=== PATIENT | male | born 1995 | race African-American/Black ===

== ENCOUNTER → 2018-08-10 | Emergency (ER) | payer SELFPAY ==
[~2018-08-10] MED LIST: DEXTROSE 5%-WATER 1000 ML 1,000 ML with SODIUM BICARBONATE 150 MEQ IV PRN; DEXTROSE 5%-WATER 250 ML with EPINEPHRINE/PF 1 MG IV PRN; DEXTROSE 5%-WATER 250 ML with NOREPINEPHRINE BITARTRATE 4 MG IV PRN; EPINEPHRINE INJ 1 MG/10 ML DISP.SYRIN ONE; ETOMIDATE INJ/PF 20 MG/10 ML SDV IV ONE; FUROSEMIDE INJ/PF 40 MG/4 ML SDV IV ONE; FUROSEMIDE INJ/PF 40 MG/4 ML SDV ONE; MIDAZOLAM 2 MG/2 ML INJ IV ONE; MIDAZOLAM 2 MG/2 ML INJ ONE; MIDAZOLAM HCL 50 MG/100 ML RTUINJ IV PRN; NITROGLYCERIN/D5W 50 MG/250 ML RTUINJ IV ONE; NITROGLYCERIN/D5W 50 MG/250 ML RTUINJ IV PRN; NOREPINEPHRINE BITARTRATE INJ/PF 4 MG/4 ML SDV IV ONE; PIPERACILLIN/TAZOBACTAM 4.5 GM VIAL IV ONE; SODIUM BICARBONATE 8.4% INJ 50 MEQ/50 ML DISP.SYRIN ONE
--- NOTE | 2018-08-10 03:11 | ER Document Report ---
ED General - General Stated Complaint: RESPIRATORY FAILURE Time Seen by Provider: 08/10/18 03:01 Notes: Patient is a 22-year-old male who presents with complaint of being found unresponsive. All history is per the paramedics. Paramedics said they were called to the patient's house. There were called by family. They said when they arrived family could give them any history and said that they did not have any info to share with them about the patient. They said when they got to the patient he was unresponsive and had blood coming from his nose and mouth. His O2 saturation was 30%. They immediately started ventilating him. When they started to manually ventilate him he started to become agitated. They had to give him versed to try to calm down his agitation. They did try to give him some Narcan but did not have any response with this regards to increasing his respiratory drive. Eventually he was trying to fight them and his O2 saturations were not coming up and was very difficult to bag and they said he was very tense and therefore they paralyzed him with rocuronium and sedated him and attempted intubation. On the laryngoscope view the patient had very edematous airway and they could not pass the tube and therefore they placed a Hugh airway and then brought the patient here. Patient's SpO2 the entire time with the Hugh airway were between 45 and 55%. They said at the house the patient had a rolled up $20 bill that had white residue on it as well as patient had some white residue on his face. Past Medical History - Social History Smoking Status: Unknown if Ever Smoked Frequency of alcohol use: unknown Family History: Other - unknown Review of Systems - Review of Systems -: Yes ROS unobtainable due to patient's medical condition - patient is unre sponsive and paralyzed Physical Exam - Vital signs Vitals: Temp Resp Pulse Ox 97.2 F 20 65 L 08/10/18 03:29 08/10/18 03:29 08/10/18 03:29 - Notes Notes: General Appearance: Well nourished, unresponsive Vitals: reviewed, See vital signs table. Head: no swelling or tenderness to the head Eyes: PERRL Mouth: No decreasd moisture Throat: No tonsillar inflammation, No airway obstruction, No lymphadenopathy Neck: Supple Lungs: Bilateral rales to auscultation with manual ventilation through Hugh airway. [place] frothy sputum coming from Hugh airway Heart: Tachycardic rate, Regular rythm, No murmur, no rub Abdomen: Normal BS, soft, No rigidity, some distention Extremities: s good pulses in all extremities, no edema. Skin: warm, dry, appropriate color, no rash Neuro: unresponsive and medically paralyzed Course - Re-evaluation Re-evalutation: 08/10/18 03:07 Upon arrival to the ED patient is being manually ventilated through a Hugh airway. His O2 saturations were in the upper 40s to mid 50s with manual ventilation. Patient had been paralyzed with rocuronium by the paramedics. I requested togive etomidate to make sure that he is not paralyzed without appropriate sedation. I used the glide scope. Paramedics informed me that his airway was very edematous and that is what they cannot place a tube and therefore I chose to go with a 6-1/2 tube to help ensure better success in passing the tube through potentially edematous airway. I also placed the patient in position for cricothyrotomy in case I was unable to secure the airway through oral tracheal intubation. I cleaned the neck with chlorhexidine and injected with lidocaine with epi. Also had a LMA at bedside in case I could not get the airway secured via endotracheal intubation so that he would have some airway protection while I performed the surgical airway. Fortunately I was able to visualize the patient's cords with the glide scope. Patient did have significant swelling of the arytenoid cartilages. I was able to get around that swelling and able to pass the tube through the cords. Patient was then ventilated and then suctioned. Large amount of blood tinged frothy sputum was suctioned. Patient is on the ventilator. Initial saturations on the ventilator were in the 50s. They are now slowly increasing and are in the mid 60s. I have ordered Lasix to be given to help with his edema. I suspect that he has pulmon rocio edema which could have some hemorrhagic component in relation to cocaine or amphetamine overdose. X-ray currently confirms large amount of edema. I have ordered a CT scan of the head to make sure the patient does not have evidence of cerebral hemorrhage as well. 08/10/18 03:08 08/10/18 04:18 Patient's heart rate suddenly started to go up and his blood pressure started to increase as well. I gave 5 mg of Versed but his heart rate continues to climb. We will give another 10 mg of Versed and place him on a nitro drip being that his blood pressure not is in the 190s systolically. I have also ordered a repeat chest x-ray to make sure that the ET tube is still in appropriate positioning. 08/10/18 04:34 Patient's x-ray shows worsening bilateral interstitial treat of process. We have continued to suction him and continue to get blood-tinged frothy sputum out. Respiratory patient has tried different vent settings however his oxygenation remains approximately the same with the pain between 55 and 65%. Blood gas has come back with a very low PO2. It is difficult to tell how accur ate this is as the patient's blood on the blood gas was very dark in color. I suspect a mixed sample. I have called to speak with the steward/stewardess second at [facility]. I am waiting hear back at this time. Patient remains tachycardic despite large doses of Versed. I will order more Lasix. 08/10/18 06:02 Was waiting for the steward/stewardess second call back and the patient went into cardiac arrest. We immediately started compressions and gave 1mg IV epinephrine every 2 minutes. Also gave the patient 2 rounds of bicarbonate. We eventually got pulses back after several rounds of CPR and epinephrine. During compressions patient had large amounts of foamy frothy sputum coming from the G-tube and also vomited several times from the mouth. I asked the nurses to mix a epi drip. As they were mixing the epi drip the patient went pulseless. I immediately started compressions again. Went through several rounds of epinephrine bicarbonate and started epi drip. We regained pulses again. Since then we have the patient on epi drip as well as nor epi. [employer] did call back again why the patient had went into cardiac arrest again. Patient is back on the vent. I have taken him off the ventilator several times to try to manually ventilate him. I cannot get his O2 saturations above 65%. His O2 saturations continue to fluctuate between mid 50s to mid 60s. We continue to suction him as he has a very large amount of frothy secretions from the ET tube. I have tried to place arterial line twice. I tried once in the right femoral and once in the right radial artery. I was unsuccessful in both attempts. We will continue monitor blood cuff pressures and continue him on epi and nor epi drips. I called back [facility] again and informed them that the patient has pulses back and I am waiting to hear back from the steward/stewardess second again. Family has still not yet arrived to the hospital. I will try to call them to inform them of the most recent occurrences. 08/10/18 06:08 I did attempt to call the phone number that we have here for the patient's father in our system. It again went to voicemail. I am still unable to get in touch with the family. 08/10/18 06:[address] speak with Dr. Gutierres, steward/stewardess second, at [facility]. I went over different vent changes have made including changing the PEEP and tidal volume as well as increasing story time. He said otherwise he does not have any further suggestions outside of what we have already done to try to increase oxygenation. He does recommend bicarb drip. He recommended Zosyn for possible aspiration. He accepted the patient. 10 minutes after I got off the phone with Dr. Gutierres the patient went into cardiac arrest again. I went through several rounds of CPR and epi and bicarb. Patient's this time had much less organized PEA. Eventually he was having bradycardic PEA with rates in the 20s with very wide complex QRS. He had no return of spontaneous circulation despite our best efforts. I did do bedside ultrasound which shows no contractility of the heart whatsoever. I cannot think of anything further that we can do to bring him back or increase his survivability. I therefore pronounced patient . Dictation of this chart was performed using voice recognition software; therefore, there may be some unintended grammatical errors. 08/10/18 06:45 I once again attempted to call the family to make them aware that Mr. Amador has . Again when I called the number it goes straight to voicemail. I did leave a voicemail asking him to call back to the ER or to come straight to the ER. I asked the charge nurse to call [place] [employer] to do a well check on the house to inform the family to come to the ER being that we cannot get in touch with them otherwise. Dictation of this chart was performed using voice recognition software; therefore, there may be some unintended grammatical errors. - Vital Signs Vital signs: Temp Pulse Resp BP Pulse Ox 98.0 F 23 H 90/51 L 50 L 08/10/18 05:40 08/10/18 05:40 08/10/18 05:40 08/10/18 05:40 - Laboratory Result Diagrams: 08/10/18 02:45 08/10/18 02:45 Laboratory results interpreted by me: 08/10/18 08/10/18 08/10/18 02:45 02:45 02:45 WBC 14.4 H MCH 26.2 L RDW 15.3 H Absolute Neutrophils 9.5 H Carbonic Acid ABG pH ABG pCO2 ABG pO2 ABG HCO3 ABG Total CO2 ABG O2 Saturation Glucose 225 H Lactic Acid Urine Protein Urine Ascorbic Acid Salicylates < 1.0 L Acetaminophen < 10 L 08/10/18 08/10/18 08/10/18 03:10 03:11 03:56 WBC MCH RDW Absolute Neutrophils Carbonic Acid 2.60 H ABG pH 7.14 L* ABG pCO2 86.4 H* ABG pO2 27.7 L* ABG HCO3 28.6 H ABG Total CO2 31.2 H ABG O2 Saturation 34.8 L Glucose Lactic Acid 4.4 H Urine Protein 30 H Urine Ascorbic Acid 40 H Salicylates Acetaminophen - EKG Interpretation by Me Additional EKG results interpreted by me: 08/10/18 03:24 EKG is reviewed and interpreted by me. EKG shows sinus tachycardia with a rate of [address] segment elevation or depression. No ischemic T wave inversions. IL interval, QRS duration, QT intervals are within normal range. No old EKG available for comparison. Procedures - Intubation Orotracheal Airway evaluation: Obese Mallampati Classification: Class 2 Intubation method: Orotracheal Blade type: Richard Blade size: 4 Equipment used: Glidescope ETT size: 6.5 Breath Sounds after Intubation: Equal Post Intubation Xray: Yes - ET tube in appropriate position Intubation Complications: No complications Critical Care Note - Critical Care Note Total time excluding time spent on procedures (mins): 90 Comments: Critical care time for this patient including time spent in procedures approximately 90 minutes due to frequent re-evaluations, management of cardiac risk, management of respiratory failure with pulmonary edema. Discharge - Discharge Clinical Impression: Cardiac arrest Pulmonary edema Qualifiers: Chronicity: acute Qualified Code(s): J81.0 - Acute pulmonary edema Disposition:
[2018-08-10 03:14] LABS: ABSOLUTE BASOPHILS # (AUTO) 0.1 10^3/uL (0.0-0.2); ABSOLUTE EOSINOPHILS # (AUTO) 0.1 10^3/uL (0.0-0.6); ABSOLUTE LYMPHOCYTES (AUTO) 3.8 10^3/uL (0.5-4.7); ABSOLUTE MONOCYTES (AUTO) 0.9 10^3/uL (0.1-1.4); ABSOLUTE NEUT (AUTO) 9.5 10^3/uL (1.7-8.2); BASOPHILS % (AUTO) 0.7 % (0-2); EOSINOPHILS % (AUTO) 0.8 % (0-6); HEMOGLOBIN 14.1 g/dL (13.5-17.0); LYMPHOCYTES % (AUTO) 26.3 % (13-45); MEAN CORPUSCULAR HEMOGLOBIN 26.2 pg (27.0-33.4); MEAN CORPUSCULAR HGB CONC 32.1 g/dL (32.0-36.0); MEAN CORPUSCULAR VOLUME 82 fl (80-97); MONOCYTES % (AUTO) 6.1 % (3-13); PLATELET COUNT 340 10^3/uL (150-450); RED BLOOD COUNT 5.37 10^6/uL (4.35-5.55); RED CELL DISTRIBUTION WIDTH 15.3 % (11.5-14.0); SEGMENTED NEUTROPHILS % (AUTO) 66.1 % (42-78); TOTAL CELLS COUNTED % (AUTO) 100 %; WHITE BLOOD COUNT 14.4 10^3/uL (4.0-10.5)
--- NOTE | 2018-08-10 03:25 | RADIOLOGY REPORT (SQ) ---
EXAM DESCRIPTION: XR CHEST 1 VIEW COMPLETED DATE/TME: 08/10/2018 03:04 CLINICAL HISTORY: 22 years, Male, post intubation COMPARISON: None. NUMBER OF VIEWS: 1 TECHNIQUE: Portable chest LIMITATIONS: None. FINDINGS: Heart size is normal. Endotracheal tube with the tip approximately 3.2 cm above the justin. Enteric tube also in place. Gaseous distention of the stomach. Mixed interstitial and airspace opacities bilaterally. No pneumothorax. IMPRESSION: Endotracheal and enteric tubes are in place. Gaseous distention of the stomach. Interstitial and airspace opacities bilaterally copyright 2010 [employer]- All Rights Reserved
[2018-08-10 03:44] LABS: ALANINE AMINOTRANSFERASE 69 U/L (21-72); ALBUMIN 4.1 g/dL (3.5-5.0); ALKALINE PHOSPHATASE 123 U/L (38-126); ANION GAP 14 (5-19); ASPARTATE AMINO TRANSFERASE 58 U/L (17-59); BILIRUBIN,DIRECT 0.2 mg/dL (0.0-0.4); BILIRUBIN,TOTAL 0.3 mg/dL (0.2-1.3); BLOOD UREA NITROGEN 17 mg/dL (7-20); CALCIUM 8.7 mg/dL (8.4-10.2); CARBON DIOXIDE 24 mmol/L (22-30); CHLORIDE 106 mmol/L (98-107); GLUCOSE 225 mg/dL (75-110); POTASSIUM 4.2 mmol/L (3.6-5.0); SODIUM 143.6 mmol/L (137-145); TOTAL PROTEIN 6.7 g/dL (6.3-8.2)
[2018-08-10 03:45] LABS: ACETAMINOPHEN < 10 ug/mL (10-30); SALICYLATE < 1.0 mg/dL (2.0-20.0)
[2018-08-10 04:09] LABS: ARTERIAL BLOOD BASE EXCESS -3.7 mmol/L; ARTERIAL BLOOD HCO3 28.6 mmol/L (20-24); ARTERIAL BLOOD O2 SATURATION 34.8 % (94-98); ARTERIAL BLOOD TOTAL CO2 31.2 mmol/L (23-27)
[2018-08-10 04:11] LABS: APPEARANCE,URINE CLEAR; BILIRUBIN,URINE NEGATIVE (NEGATIVE); COLOR,URINE YELLOW; GLUCOSE, URINE NEGATIVE (NEGATIVE); KETONES,URINE NEGATIVE (NEGATIVE); LEUKOCYTE ESTERASE,URINE NEGATIVE (NEGATIVE); NITRITE,URINE NEGATIVE (NEGATIVE); PROTEIN,URINE 30 mg/dL (NEGATIVE); URINE SPECIFIC GRAVITY 1.016; UROBILINOGEN,URINE NEGATIVE mg/dL (<2.0)
[2018-08-10 04:13] LABS: ARTERIAL BLOOD FIO2 100%; ARTERIAL BLOOD PH 7.14 (7.35-7.45)
[2018-08-10 04:14] LABS: ARTERIAL BLOOD PCO2 86.4 mmHg (35-45); ARTERIAL BLOOD PO2 27.7 mmHg (80-100)
--- NOTE | 2018-08-10 04:16 | RADIOLOGY REPORT (SQ) ---
EXAM DESCRIPTION: CT HEAD WITHOUT IV CONTRAST COMPLETED DATE/TME: 08/10/2018 03:03 CLINICAL HISTORY: 22 years, Male, cocaine, altered mental status COMPARISON: None. TECHNIQUE: 197 Images stored on PACS. All CT scanners at this facility use dose modulation, iterative reconstruction, and/or weight based dosing when appropriate to reduce radiation dose to as low as reasonably achievable (ALARA). [facility]: Dose Right [facility]: CareDose [facility]: Dose Right [facility]: Teradose 4D [facility]: [employer] LIMITATIONS: None. FINDINGS: The globes are intact. Mucosal thickening and polyps of the maxillary sinuses, ethmoid air cells and sphenoid sinuses. Nasogastric tube partially visualized. No displaced or depressed skull fracture. No intra or extra-axial hemorrhage. CT is limited for evaluation of acute infarct. No CT evidence for large or territorial acute infarct. No mass or midline shift IMPRESSION: Paranasal sinus disease. Negative for acute intracranial abnormality. TECHNICAL DOCUMENTATION: Quality ID # [id number]: Final reports with documentation of one or more dose reduction techniques (e.g., Automated exposure control, adjustment of the mA and/or kV according to patient size, use of iterative reconstruction technique) copyright 2010 [employer]- All Rights Reserved
[2018-08-10 04:34] LABS: URINE AMPHETAMINES SCREEN NEGATIVE; URINE BARBITURATES SCREEN NEGATIVE; URINE BENZODIAZEPINES SCREEN UNCONFIRMED POSITIVE; URINE COCAINE SCREEN NEGATIVE; URINE MARIJUANA (THC) SCREEN UNCONFIRMED POSITIVE; URINE METHADONE SCREEN NEGATIVE; URINE PHENCYCLIDINE SCREEN NEGATIVE
--- NOTE | 2018-08-10 04:42 | RADIOLOGY REPORT (SQ) ---
EXAM DESCRIPTION: XR CHEST 1 VIEW COMPLETED DATE/TME: 08/10/2018 04:17 CLINICAL HISTORY: 22 years, Male, dyspnea, hypoxemia COMPARISON: Prior chest x-ray from today's date NUMBER OF VIEWS: 1 TECHNIQUE: Portable chest LIMITATIONS: None. FINDINGS: Heart size is stable. Interval worsening of airspace opacities bilaterally with underlying interstitial changes well. Prominent air bronchograms. Lung apices were not included on the exam. No discrete pneumothorax. Endotracheal and enteric tubes are in grossly unchanged position. Distention of the stomach. IMPRESSION: Endotracheal and enteric tubes in grossly unchanged position. Interval worsening of airspace opacities bilaterally, as above copyright 2010 [employer]- All Rights Reserved
[2018-08-10 07:49] VITALS: BP 69/51
--- NOTE | 2018-08-10 07:52 | EKG REPORT ---
SEVERITY:- OTHERWISE NORMAL ECG - SINUS TACHYCARDIA : Confirmed by: Tia Ratliff MD 10-Aug-2018 07:52:12
[2018-08-12 07:42] LABS: HEPATITIS A AB IGM Negative (Negative); HEPATITIS B CORE AB IGM Negative (Negative); HEPATITS B SURFACE ANTIGEN Negative (Negative)
[2018-08-12 09:33] LABS: HEPATITIS C VIRUS ANTIBODY <0.1 s/co ratio (0.0-0.9)
== END | disposition expired ==
LOC: ER 02:38
PROC: 0BH17EZ Insertion of Endotracheal Airway into Trachea, Via Natural or Artificial Opening (ICD-10-PCS; principal; 2018-08-10)
DX: I46.9 Cardiac arrest, cause unspecified (principal); J81.0 Acute pulmonary edema; J96.90 Respiratory failure, unspecified, unspecified whether with hypoxia or hypercapnia; R00.0 Tachycardia, unspecified
CPT/HCPCS: 93005; 96376; 99291; 99292; 92950; 51702; 96375; 96365; 96366; 96368; 36415; 82803; 83605; 80307 ×3; 85025; 80053; 81001; 84484; 86701; 80074; 71045; 70450; 94660; 93010; 31500; J2250 ×2; J0171 ×2; J1940; J3490 ×4; J7060; 94002